=== PATIENT | female | born 1970 | race Caucasian/White ===

== ENCOUNTER → 2016-11-15 | Outpatient (CLI) | payer BC ==
[~2016-11-15] MED LIST: Aspirin Chewable PO; B COMPLEX #11 EACH PO; BENICAR5 MG PO; DULCOLAX STOOL100 MG PO; FEMCON PO; FISH OIL CONC1 EACH PO; NASONEX17 GM BOTH NARES; PEPCID20 MG PO; PLAQUENIL200 MG PO; Sodium Chloride PO; VITAMIN D-32000 UNIT PO
== END | disposition home or self-care (01) ==
DX: R13.10 Dysphagia, unspecified (principal); R05 Cough
CPT/HCPCS: 92611 GN